=== PATIENT | female | born 1955 | race Caucasian/White ===

== ENCOUNTER 2024-09-18 15:21 | Emergency (ER) | payer BC, SELFPAY ==
[2024-09-18 15:22] VITALS: BP 174/98; PULSE 119; RESP 18; TEMP 37; O2SAT 99
[2024-09-18 15:23] VITALS: BP 174/98; PULSE 119; RESP 18; TEMP 37; O2SAT 99
--- NOTE | 2024-09-18 15:32 | PCA ---
pt very tearful when placed into room.
--- NOTE | 2024-09-18 15:33 | EX.ED.DYSGE1 ---
HPI History of Present Illness Chief Complaint: Confusion Informant: patient Onset/Context/Timing Onset: Weeks (6) Context: Gradual Onset Timing: Waxes and wanes Quality: Confused, unsteady, spinning Location: Generalized Worsened by: Nothing Relieved by: Nothing Narrative Narrative: Patient presents with confusion, visual and auditory hallucinations, dizziness, and insomnia for the past 6 weeks. Patient states she has had urinary tract infections that were diagnosed by her nurse practitioner. Patient is currently on Bactrim for these. Patient had a culture done which shows that it is sensitive to Bactrim. Patient denies any fevers or chills. states patient has been more confused. states that the patient has been having some insomnia for the past few days. Patient admits to some nausea and vomiting. Patient admits to headache, neck pain, and back pain. [facility] Medical History (Updated 09/18/24 @ 18:[address] Sunny Avendano DO) Lymphedema Fibromyalgia Breast cancer Hypertension Diabetes Allergy/AdvReac Type Severity Reaction Status Date / Time amoxicillin Allergy Severe RASH Verified 09/18/24 15:25 azithromycin (From Zithromax) Allergy Unknown UNKNWN Verified 09/18/24 15:25 Penicillins AdvReac Unknown UNKOWN Verified 09/18/24 15:25 Surgical History S/P aorta repair Hx of eye surgery Hx of tonsillectomy Hx of hysterectomy Hx of cholecystectomy Hx of left mastectomy Social History Smoking Status: Never smoker ROS ROS ED Constitutional Constitutional ED: Denies chills or fever(s) Eyes Eyes: Reports change in vision; Denies blurry vision ENT ENT ED: Denies rhinorrhea or sore throat Cardiovascular Cardiovascular: Denies chest pain or palpitations Respiratory/Chest Respiratory/Chest: Denies cough or dyspnea Gastrointestinal Gastrointestinal: Reports nausea and vomiting Genitourinary Genitourinary ED: Denies dysuria or hematuria Musculoskeletal Musculoskeletal: Reports back pain and neck pain Integumentary Denies abscess or rash Neurologic Neurologic: Reports headache(s); Denies weakness Allergic/Immunologic Allergic/Immunologic ED: Denies mouth swelling or urticaria EXAM Physical Exam Const Vital Signs: 09/18/24 15:22 09/18/24 15:23 09/18/24 16:45 Temperature 98.6 F 98.6 F 97.8 F Temperature Source Oral Oral Oral Pulse Rate 119 H 119 H 85 Respiratory Rate 18 18 16 Blood Pressure 174/98 H 174/98 H 181/62 H Blood Pressure Mean 123 123 101 Pulse Ox 99 99 97 Oxygen Delivery Method Room Air Room Air Room Air 09/18/24 17:00 09/18/24 18:00 09/18/24 18:25 Temperature 98.1 F 98.1 F 98.1 F Temperature Source Temporal Oral Pulse Rate 103 H 84 88 Respiratory Rate 17 16 16 Blood Pressure 167/83 H 168/94 H 168/74 H Blood Pressure Mean 111 118 105 Pulse Ox 98 93 96 Oxygen Delivery Method Room Air Positive well nourished and well developed General Appearance ED: well developed and NAD HEENT Reports moist mucous membranes Neck supple and no JVD Resp normal respiratory effort and clear to auscultation bilaterally Cardio regular rate and regular rhythm GI non-tender and non-distended Palpation: soft Back/Spine no CVA tenderness Extremity Extremity Narrative: There is edema of the left upper extremity. There is no tenderness. General Extremety ED: Yes edema General Extremity: edema Neuro oriented x3, CN's II-XII intact bilaterally and no sensory deficits noted Sensorium / Orientation: alert Motor Exam: strength 5/5 throughout Psych mental status grossly normal MDM MDM MDM Narrative Medical decision making narrative: Differential diagnosis includes urinary tract infection, sepsis, electrolyte abnormality, dehydration, insomnia, vertigo, anemia, and anxiety. CBC will be obtained to assess for leukocytosis and anemia. Basic metabolic profile will be obtained to assess for electrolyte abnormality and renal function. Urinalysis will be obtained to assess for urinary tract infection and hematuria. Serum lactate will be obtained to assess for sepsis. Blood culture will be obtained to assess for sepsis. Urine culture will be obtained to assess for urinary tract infection. Orthostatic vital signs will be obtained to assess for orthostatic hypotension and hypovolemia. CT scan of the brain will be obtained to assess for stroke and intracranial bleeding. History & Record Review Additional record(s) reviewed:: No prior records Lab Data Attestation: I reviewed the patient's lab results. Lab results narrative: CBC was reviewed and was within normal limits. Basic metabolic profile was reviewed and was within normal limits. Serum lactate was repeated and was normal at 1.5. Urinalysis was reviewed. Leukocyte esterase was negative. There is 0 white blood cells noted. There are 5-10 epithelial cells. There is 1+ bacteria. Labs: Laboratory Results - last 24 hr 09/18/24 09/18/24 16:22 16:38 WBC 7.8 RBC 4.79 Hgb 15.1 H Hct 43.4 MCV 90.6 MCH 31.5 MCHC 34.8 RDW Std Deviation 48.7 H RDW Coeff of Estee 14.6 Plt Count 329 MPV 9.6 Immature Gran % (Auto) 0.300 Neut % (Auto) 60.6 Lymph % (Auto) 27.5 [place] % (Auto) 10.8 H Eos % (Auto) 0.4 Baso % (Auto) 0.4 Absolute Neuts (auto) 4.7 Absolute Lymphs (auto) 2.14 Nucleated RBC % 0 Sodium 138 Potassium 4.1 Chloride 103 Carbon Dioxide 21.6 Anion Gap 13 BUN 15 Creatinine 1.11 Est GFR (MDRD) Non-Af 54 L BUN/Creatinine Ratio 13.2 Glucose 95 Lactic Acid 1.5 Calcium 10.1 Urine Color Yellow Urine Clarity Sl. Cloudy Urine pH 6.5 Ur Specific [place] 1.010 Urine Protein 15 H Urine Glucose (UA) Normal Urine Ketones Negative Urine Occult Blood Negative Urine Nitrite Negative Urine Bilirubin Negative Urine Urobilinogen 1 H Ur Leukocyte Esterase Negative Urine RBC 0-5 SEEN Urine WBC 0 SEEN Ur Squamous Epith Cells 5-10 SEEN Urine Bacteria 1+ Urine Mucus 0 SEEN Urine Yeast RARE Radiography Diagnostic Testing: Clinical Impression(s) from Imaging Studies Brain CT 09/18/24 15:59 IMPRESSION: NO ACUTE FINDINGS Reading Location: [facility] CT scan of the brain was obtained. There is no acute intracranial abnormality. This was interpreted by the radiologist and was also independently reviewed by myself. Treatment and Re-Evaluation :: Patient was given IV fluids. Patient is feeling better on reevaluation. Patient and spouse were advised of her findings. Patient was instructed to follow-up with her primary care physician in 3 to 5 days for further evaluation. Patient and spouse understood and were agreeable with the plan. All questions were answered. Discharge Plan Triage Chief Complaint: Confusion ED Provider: Sunny Avendano Dx/Rx/DC Orders Clinical Impression: Episodic confusion, Hypertension, Fibromyalgia, Lymphedema Instructions: ED Confusion Primary Care Provider: YOLANDA ALANIZ Referrals: YOLANDA ALANIZ CRNP [Primary Care Provider] - 3-5 Days Print Language: Luxembourgish Disposition Disposition: Home, Self Care Discharge Date/Time: 09/18/24 18:35
--- NOTE | 2024-09-18 15:59 | CT_ITS ---
PROCEDURE: BRAIN/HEAD WITHOUT CONTRAST 09/18/2024 REASON FOR EXAM: CONFUSION TECHNIQUE: BRAIN/HEAD WITHOUT CONTRAST Coronal and Sagittal reconstruction series were provided. One or more dose reduction techniques were used (e.g., Automated exposure control, adjustment of the mA and/or kV according to patient size, use of iterative reconstruction technique. RADIATION DOSE SUMMARY: CTDlvol: 44.99 mGy DLP: 76.11 mGycm FINDINGS: Ventricles are normal in size and midline in position. No evidence of acute hemorrhage or infarction. No extra-axial blood or fluid collections. The calvarial vault and skull base are intact. The paranasal sinuses and mastoid air cells are clear. CT/Brain/Head without Contrast IMPRESSION: NO ACUTE FINDINGS Reading Location: [id number]
[2024-09-18] MEDS: 0.9% Normal Saline (1000mL) 1,000 ML 1000 ML IV (16:40)
[2024-09-18 16:41] LABS: Hematocrit 43.4 % (37-47); Hemoglobin 15.1 g/dL (12.0-15.0); Immature Granulocytes Count 0.020 X10^3/uL (0.0-0.0); Mean Corp Hgb Conc 34.8 g/dL (32-36); Mean Corpuscular Volume 90.6 fL (81-99); Mean Platelet Vol. 9.6 fl (6.2-12.0); NRBC Flagged by Analyzer 0 % (0-5); Platelet Count 329 K/mm3 (150-450); RBC Distribution Width CV 14.6 % (11.6-14.6); RBC Distribution Width SD 48.7 fl (35.1-43.9); Red Blood Count 4.79 M/mm3 (4.2-5.4); White Blood Count 7.8 K/mm3 (4.4-11.0)
[2024-09-18 16:45] VITALS: BP 181/62; PULSE 85; RESP 16; TEMP 36.6; O2SAT 97
[2024-09-18 16:49] LABS: Mucous, Urine 0 SEEN /hpf (<or=2+)
[2024-09-18 17:00] VITALS: BP 167/83; PULSE 103; RESP 17; TEMP 36.7; O2SAT 98
[2024-09-18 17:10] LABS: Color, Urine Yellow (Yellow); Glucose, Dipstick Normal (Normal); Ketone-Dipstick Negative (Negative); Leukocyte Esterase-Dipstick Negative /ul (Negative); Nitrite-Dipstick Negative (Negative); Occult Blood-Urine Negative /ul (Negative); Protein-Dipstick 15 mg/dl (Negative); Specific Gravity, Urine 1.010 (1.002-1.030); Urine Bilirubin Dipstick Negative (Negative)
[2024-09-18 17:22] LABS: Anion Gap 13 (5-15); BUN 15 mg/dL (4-19); BUN/Creat Ratio 13.2 RATIO (10-20); Calcium,Total 10.1 mg/dL (7.6-11.0); Carbon Dioxide 21.6 mmol/L (21.0-32.0); Chloride 103 mmol/L (98-108); Glucose 95 mg/dL (70-99); Potassium 4.1 mmol/L (3.3-5.1)
[2024-09-18 17:54] LABS: Squamous Epithelial Cells - UA 5-10 SEEN /hpf (5-10)
[2024-09-18 17:55] LABS: Red Blood Cells-Urine 0-5 SEEN /hpf (0-5); Yeast-Urine RARE /hpf (None Seen)
[2024-09-18 18:00] VITALS: BP 168/94; PULSE 84; RESP 16; TEMP 36.7; O2SAT 93
[2024-09-18 18:25] VITALS: BP 168/74; PULSE 88; RESP 16; TEMP 36.7; O2SAT 96
== END 2024-09-18 18:35 | disposition home or self-care (01) ==
PROVIDERS: Emergency Provider Emergency Medicine; PCP Nurse Practitioner Family; Visit Provider Emergency Medicine
DX: R41.0 Disorientation, unspecified (principal); E11.9 Type 2 diabetes mellitus without complications; M79.7 Fibromyalgia; I10 Essential (primary) hypertension; I89.0 Lymphedema, not elsewhere classified; Z85.3 Personal history of malignant neoplasm of breast; Z90.710 Acquired absence of both cervix and uterus; Z90.49 Acquired absence of other specified parts of digestive tract; Z90.12 Acquired absence of left breast and nipple
CPT/HCPCS: 70450; 80048; 81001; 83605; 85025; 87040; 87086; 87088; 96360; 99284; A4216